=== PATIENT | male | born 1940 | race Caucasian/White ===

== ENCOUNTER 2017-11-08 14:27 | Outpatient (CLI) | payer MEDICARE, BC ==
[~2017-11-08] VITALS: Ht 182.9 cm; Wt 131.5 kg
[~2017-11-08 14:27] MED LIST: ALBU8HFA PO; CALC-793 PO; COU7.5T PO; DICY10CA88 PO; DULO60CA34; ELECTROLYTES PO; FAMO20TA20 PO; FLUT1DIS INH; FURO-150 PO; GABA-338 PO; LACT1CAP65 PO; LOVA40TA76 PO; MAGN200T PO; METF500T7 PO; MODA100T31 PO; MULT-1085 PO; NEBI10TA4; OMEG1CAP2 PO; PANT40TA4 PO; POTA10TA10 PO; PROM25TA14 PO; SPIIN IH; TAMS0.4C32; VITC500T PO; [UNRECOGNIZED DRUG - CODE] PO
[2017-11-08 14:55] LABS: TOTAL HEMOGLOBIN 12.8 G/dl (14.0-18.0)
[2017-11-08] MEDS ORDERED: albuterol 2.5 MG/3 ML nebule NEB ONE (15:05)
== END 2017-11-08 23:59 | disposition home or self-care (01) ==
LOC: RT 14:27
PROVIDERS: ATTEND Internal Medicine Pulmonary Disease
DX: J44.9 Chronic obstructive pulmonary disease, unspecified (principal); G47.30 Sleep apnea, unspecified; R06.09 Other forms of dyspnea; F17.200 Nicotine dependence, unspecified, uncomplicated; E11.9 Type 2 diabetes mellitus without complications; I11.0 Hypertensive heart disease with heart failure; I50.9 Heart failure, unspecified; Z79.899 Other long term (current) drug therapy
CPT/HCPCS: 85018; 94060; 94640; 94727; 94729; 94760